=== PATIENT | female | born 1990 | race African-American/Black ===

== ENCOUNTER 2016-11-03 22:18 | Emergency (ER) | payer SELFPAY ==
[2016-11-03 22:23] VITALS: BP 126/96
[2016-11-03] MEDS ORDERED: Amoxicillin/Clavulanate TAB* 875 MG PO ONE (23:44)
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
[2016-11-04] MEDS ORDERED: Ibuprofen TAB* 600 MG PO ONE (00:17)
== END 2016-11-04 00:34 | disposition home or self-care (01) ==
LOC: ED 22:18
DX: S60.471A Other superficial bite of left index finger, initial encounter (principal); W50.3XXA Accidental bite by another person, initial encounter; Y93.F9 Activity, other caregiving; Y92.129 Unspecified place in nursing home as the place of occurrence of the external cause; Y99.0 Civilian activity done for income or pay
CPT/HCPCS: 99282; A9270-GY

== ENCOUNTER 2017-02-07 13:40 | Emergency (ER) | payer SELFPAY ==
[2017-02-07 13:48] VITALS: BP 110/63
--- NOTE | 2017-02-07 13:55 | UC ---
Headache HPI - HPI Summary HPI Summary: 27 YEAR OLD FEMALE PRESENTS WITH COMPLAINS OF HEADACHE X 2 WEEKS. - History Of Current Complaint Chief Complaint: UCHeadache Stated Complaint: HEADACHE Time Seen by Provider: 02/07/17 13:50 Hx Obtained From: Patient Hx Last Menstrual Period: 01/26/17 Onset/Duration: Lasting Weeks Onset Of Symptoms: Sudden Pain Scale Used: 0-10 Numeric - 7 Timing: Constant Character: Sharp Location of Headache: Frontal Aggravating Factor(s): Position Change Allevating Factor(s): Nothing Associated Signs And Symptoms: Positive: Dizziness - Allergies/Home Medications Allergies/Adverse Reactions: Allergies Allergy/AdvReac Type Severity Reaction Status Date / Time No Known Allergies Allergy Verified 10/28/15 17:29 PMH/Surg Hx/FS Hx/Imm Hx Previously Healthy: Yes Other History Of: Negative For: Anticoagulant Therapy - Surgical History Surgical History: None - Family History Known Family History: Positive: None - Social History Alcohol Use: Occasionally Substance Use Type: None Smoking Status (MU): Never Smoked Tobacco - Immunization History Most Recent Influenza Vaccination: Most Recent Tetanus Shot: UTD Review of Systems Constitutional: Fatigue, Other - HEADACHE Skin: Negative Eyes: Negative ENT: Sinus Congestion, Sinus Pain/Tenderness Respiratory: Negative Cardiovascular: Negative Gastrointestinal: Negative Genitourinary: Negative Motor: Negative Musculoskeletal: Negative Neurological: Negative Psychological: Negative All Other Systems Reviewed And Are Negative: Yes Physical Exam Triage Information Reviewed: Yes Appearance: Pain Distress Vital Signs: Initial Vital Signs Temp 37.1 C 02/07/17 13:44 Pulse 72 02/07/17 13:44 Resp 18 02/07/17 13:44 BP 110/63 02/07/17 13:44 Pulse Ox 100 02/07/17 13:44 Vital Signs Reviewed: Yes Eye Exam: Normal ENT: Positive: Nasal congestion Dental Exam: Normal Neck exam: Normal Neck: Positive: 1 Respiratory Exam: Normal Cardiovascular Exam: Normal Abdominal Exam: Normal Musculoskeletal Exam: Normal Neurological Exam: Normal Psychological Exam: Normal Skin Exam: Normal Headache Course/Dx - Differential Dx/Diagnosis Provider Diagnoses: SINUSITIS Discharge - Discharge Plan Condition: Stable Disposition: HOME Prescriptions: Amoxicillin/Clavulanate TAB* [Augmentin TAB 875*] 875 mg PO BID #20 tab Methylprednisolone [Medrol Dosepak 4 MG*] 4 mg PO .SEE BRADLY INSTRUCTION #21 tab Patient Education Materials: Sinusitis (ED) Referrals: No Primary Care Phys,NOPCP [Primary Care Provider] -
== END 2017-02-07 14:21 | disposition home or self-care (01) ==
LOC: UCEAST 13:40
DX: J32.9 Chronic sinusitis, unspecified (principal)
CPT/HCPCS: 99212; G0463

== ENCOUNTER 2017-06-26 12:32 | Emergency (ER) | payer MEDICAID ==
[2017-06-26 13:02] VITALS: BP 100/65
--- NOTE | 2017-06-26 13:09 | UC ---
Throat Pain/Nasal Yehuda HPI - HPI Summary HPI Summary: Pt presents with right ear pain and right sided sore throat for the last 5 days. Also complains of fatigue since yesterday. Has been taking theraflu OTC with no relief. Denies fever, chills, SOB, chest pain, abdominal pain, n/v/d/c. - History of Current Complaint Chief Complaint: UCEar Stated Complaint: SORE THROAT EAR PAIN Time Seen by Provider: 06/26/17 13:09 Hx Obtained From: Patient Hx Last Menstrual Period: 06/16/2017 Onset/Duration: Gradual Onset Severity: Moderate Pain Intensity: 8 Pain Scale Used: 0-10 Numeric - Allergies/Home Medications Allergies/Adverse Reactions: Allergies Allergy/AdvReac Type Severity Reaction Status Date / Time No Known Allergies Allergy Verified 06/26/17 12:57 Home Medications: Home Medications D-Methorphan/PE/Acetaminophen [Theraflu Expressmax Sever 10-5-325 mg] 1 tab PO Q8HR PRN 06/26/17 [History Confirmed 06/26/17] PMH/Surg Hx/FS Hx/Imm Hx Previously Healthy: Yes Other History Of: Negative For: Anticoagulant Therapy - Surgical History Surgical History: None - Family History Known Family History: Positive: None - Social History Occupation: Employed Full-time Lives: With Family Alcohol Use: None Substance Use Type: None Smoking Status (MU): Never Smoked Tobacco - Immunization History Most Recent Influenza Vaccination: SEASON Most Recent Tetanus Shot: UTD Review of Systems Constitutional: Fatigue Skin: Negative Eyes: Negative ENT: Sore Throat, Ear Ache Respiratory: Negative Cardiovascular: Negative Gastrointestinal: Negative Neurological: Negative Psychological: Negative All Other Systems Reviewed And Are Negative: Yes Physical Exam Triage Information Reviewed: Yes Appearance: No Pain Distress, Well-Nourished, Ill-Appearing - Mildly Vital Signs: Initial Vital Signs Temp 98.6 F 06/26/17 12:58 Pulse 70 06/26/17 12:58 Resp 18 06/26/17 12:58 BP 100/65 06/26/17 12:58 Pulse Ox 99 06/26/17 12:58 Vital Signs Reviewed: Yes Eyes: Positive: Conjunctiva Clear. Negative: Conjunctiva Inflamed, Discharge ENT: Positive: Hearing grossly normal, Pharyngeal erythema, TM bulging - Right ear, TM red - Right ear, Uvula midline. Negative: Nasal congestion, Nasal drainage, Tonsillar swelling, Tonsillar exudate, Hoarse voice, Sinus tenderness Neck: Positive: Supple, Nontender, No Lymphadenopathy Respiratory: Positive: Lungs clear, Normal breath sounds, No respiratory distress, No accessory muscle use Cardiovascular: Positive: RRR, No Murmur, Pulses Normal Abdomen Description: Positive: Nontender, No Organomegaly, Soft. Negative: CVA Tenderness (R), CVA Tenderness (L), Distended, Guarding Bowel Sounds: Positive: Present Neurological: Positive: Alert Psychological: Positive: Age Appropriate Behavior Skin: Negative: rashes Throat Pain/Nasal Course/Dx - Course Course Of Treatment: POC flu and strep neg. Right otitis media. Pharyngitis. - Differential Dx/Diagnosis Provider Diagnoses: Right otitis media. Pharyngitis Discharge - Discharge Plan Condition: Stable Disposition: HOME Prescriptions: Amoxicillin PO (*) [Amoxicillin 500 MG CAP*] 500 mg PO Q12H #20 cap predniSONE TAB* [Deltasone TAB*] 50 mg PO DAILY #5 tab Patient Education Materials: Pharyngitis (ED) Forms: *Work Release Referrals: No Primary Care Phys,NOPCP [Primary Care Provider] - Additional Instructions: If you develop a fever, shortness of breath, chest pain, new or worsening symptoms - please call your PCP or go to the ED. 1) May try OTC Preeti's earache drops for relief of ear pain
== END 2017-06-26 14:05 | disposition home or self-care (01) ==
LOC: UCEAST 12:32
DX: H66.91 Otitis media, unspecified, right ear (principal); J02.9 Acute pharyngitis, unspecified; R53.83 Other fatigue
CPT/HCPCS: 87502; 87651; 99212; G0463

== ENCOUNTER 2019-07-22 14:33 | Emergency (ER) | payer OTHER ==
--- OUTSIDE RECORDS SUMMARY | 2019-07-22 15:09 | XMS REPORT | Continuity of Care Document ---
:1990 External Reference #:[id number] Author Name LATRICE Akins (transmitted by agent of provider Elinor Mendoza) Address [address] [place] [id number] Care Team Providers Name Role Phone Zahida Peterson M.D. - Family Medicine Care Team Information Rn Transport [phone] Problems Active Problems Provider Date Unspecified sprain of left thumb, subsequent Fnu MD Yogesh Onset: 2014 encounter Panic disorder with agoraphobia Jorje Mederos M.D. Onset: 07/29/2017 Social History Type Date Description Comments Sex Unknown ETOH Use Denies alcohol use Tobacco Use Start: Unknown Patient has never smoked Recreational Drug Use Denies Drug Use Smoking Status Reviewed: 06/08/19 Patient has never smoked Exercise Type/Frequency Does not exercise Allergies, Adverse Reactions, Alerts Description No Known Drug Allergies Medications Active Medications SIG Qnty Indications Ordering Provider Date Hydroxyzine HCL take one tablet 30tabs F40.01 LATRICE Akins 2017 25mg by mouth 3x Tablets daily F40.10 Melatonin 1 tab by mouth at bedtime as Unknown 10mg Capsules needed for insomnia Medications Administered in Office Medication SIG Qnty Indications Ordering Provider Date PPD Jorje Mederos M.D. 07/29/2017 Injection Immunizations CPT Code Status Date Vaccine Reaction Lot # [id number] Given 07/29/2017 Tdap - No immediate [id number] Tetanus/Diptheria/Acellular reaction... Pertussis [id number] Given 07/29/2017 Influenza Virus Vaccine, No immediate [id number] Quadrivalent, Split, reaction... Preservative Free Vital Signs Date Vital Result Comment 06/08/2019 3:35pm Height 67 inches 5'7" Weight 157.25 lb Heart Rate 74 /min BP Systolic 115 mmHg BP Diastolic 67 mmHg Body Temperature 98.8 F O2 % BldC Oximetry 98 % BMI (Body Mass Index) 24.6 kg/m2 03/16/2019 1:00pm Height 67 inches 5'7" Weight 155.12 lb Heart Rate 69 /min BP Systolic 116 mmHg BP Diastolic 67 mmHg Body Temperature 97.9 F O2 % BldC Oximetry 98 % BMI (Body Mass Index) 24.3 kg/m2 Results Description No Information Available Procedures Description No Information Available Medical Devices Description No Information Available Encounters Type Date Location Provider Dx Diagnosis Office Visit 03/16/2019 [facility] Jose Antonioa Jam, F40.10 Social phobia, 1:00p Medicine - [facility] BEHAVIOR SPECIALIST unspecified Office Visit 12/29/2018 [facility] Emilianoofia Jam, K21.9 Gastro- esophageal 1:00p Medicine - [facility] reflux disease without esophagitis Assessments Date Code Description Provider 06/08/2019 L81.3 [employer] Parviz Polk, BEHAVIOR SPECIALIST 06/08/2019 F40.10 Social phobia, unspecified Zsofia Jam, BEHAVIOR SPECIALIST 03/16/2019 F40.10 Social phobia, unspecified Zsofia Jam, BEHAVIOR SPECIALIST 12/29/2018 K21.9 Gastro-esophageal reflux disease without Zsofia Jam, BEHAVIOR SPECIALIST esophagitis Plan of Treatment 06/08/2019 - Parviz Polk, FNPL81.3 [employer] [id number] Social phobia, unspecifiedComments:Sent Rx fo rmelatonin Functional Status Description No Information Available Mental Status Description No Information Available Referrals Description No Information Available
[2019-07-22 15:32] VITALS: BP 114/65
--- NOTE | 2019-07-22 15:32 | UC ---
Respiratory Complaint HPI - HPI Summary HPI Summary: 29-year-old woman comes in with chief complaint of upper respiratory tract infection symptoms for 2 weeks. Symptoms started when she was in [facility]. She's been having rhinorrhea and a cough. She's been treating with over- the-counter medicines which have been helping however the last couple days she' s gotten worse and this morning she woke up with chills. She does have some chest congestion but denies any shortness of breath or wheezing. No history of asthma. No known contacts with anybody with Covid 19. - History of Current Complaint Chief Complaint: UCGeneralIllness Stated Complaint: RUNNY NOSE,COUGH,CHILLS Time Seen by Provider: 07/22/19 15:12 Hx Last Menstrual Period: 1 month ago Pain Intensity: 5 - Allergies/Home Medications Allergies/Adverse Reactions: Allergies Allergy/AdvReac Type Severity Reaction Status Date / Time No Known Allergies Allergy Verified 07/22/19 14:49 Home Medications: Home Medications DOXYcycline CAP(*) [DOXYcycline 100MG CAP(*)] 100 mg PO BID #20 cap 07/22/19 [Rx ] hydrALAZINE TAB* [Apresoline TAB*] 10 mg PO TID 07/22/19 [History Confirmed ] PMH/Surg Hx/FS Hx/Imm Hx Previously Healthy: Yes Other History Of: Negative For: Anticoagulant Therapy - Surgical History Surgical History: None - Family History Known Family History: Positive: None - Social History Alcohol Use: Occasionally Substance Use Type: None Smoking Status (MU): Never Smoked Tobacco - Immunization History Most Recent Influenza Vaccination: SEASON Most Recent Tetanus Shot: UTD Review of Systems All Other Systems Reviewed And Are Negative: Yes Constitutional: Positive: Chills, Other - SEE HPI Skin: Positive: Negative Eyes: Positive: Negative ENT: Positive: Nasal Discharge, Sinus Congestion Respiratory: Positive: Cough, Other - SEE HPI Cardiovascular: Positive: Negative Gastrointestinal: Positive: Negative Motor: Positive: Negative Neurovascular: Positive: Negative Musculoskeletal: Positive: Negative Neurological/Mental Status: Positive: Negative Psychological: Positive: Negative Is Patient Immunocompromised?: No Physical Exam - Summary Physical Exam Summary: To decrease the risk of transmission of possible Covid 19 this interview was done with telemedicine which does limit the physical examination. Triage Information Reviewed: Yes Appearance: No Pain Distress, Well-Nourished, Ill-Appearing - MILD Vital Signs Reviewed: Yes Eye Exam: Normal Eyes: Positive: Conjunctiva Clear ENT: Positive: Nasal congestion, Nasal drainage Neck: Positive: Supple Respiratory: Positive: No respiratory distress Musculoskeletal: Positive: Strength Intact, ROM Intact Neurological: Positive: Alert, Muscle Tone Normal Psychological: Positive: Age Appropriate Behavior Skin Exam: Normal Respiratory Course/Dx - Course Course Of Treatment: Strep and flu were negative. Patient's had her symptoms for 2 weeks so this could be a viral infection is gone into a bacterial infection and therefore we will treat with doxycycline 100 mg by mouth twice a day. Also treat symptomatically. With her patient's symptoms worsening this also could be Covid virus and therefore Covid 19 was taken. Patient will follow-up with [facility]. If the patient feels worse she will go to the emergency department. - Differential Dx/Diagnosis Provider Diagnosis: Sinusitis, Bronchitis Discharge ED - Sign-Out/Discharge Documenting (check all that apply): Patient Departure All imaging exams completed and their final reports reviewed: No Studies - Discharge Plan Condition: Stable Disposition: HOME Prescriptions: DOXYcycline CAP(*) [DOXYcycline 100MG CAP(*)] 100 mg PO BID #20 cap Patient Education Materials: Sinusitis (ED), Acute Bronchitis (ED) Forms: COVID-19 Tested & Isolation, *Work Release Referrals: [facility] REFERRAL [Outside] [facility] Dept [Outside] Additional Instructions: PLACE YOURSELF IN HOME ISOLATION. THE [facility]PART[facility] WILL CONTACT YOU. CONTACT THEM TOMORROW IF YOU HAVE NOT HEARD FROM THEM. FOLLOW UP WITH YOUR DOCTOR IF NOT COMPLETELY IMPROVED. GO TO THE EMERGENCY DEPARTMENT IF NOT IMPROVED OR WORSE OR ANY QUESTIONS OR CONCERNS. - Billing Disposition and Condition Condition: STABLE Disposition: Home
[2019-07-22 15:50] LABS: Influenza A Molecular Negative (Negative); Influenza B Molecular Negative (Negative)
== END 2019-07-22 16:20 | disposition home or self-care (01) ==
LOC: UCEAST 14:33
DX: J32.9 Chronic sinusitis, unspecified (principal); J40 Bronchitis, not specified as acute or chronic
CPT/HCPCS: 87651; 99213; G0463; Q3014; U0002